=== PATIENT | female | born 1960 | race African-American/Black ===

== ENCOUNTER 2024-12-31 16:28 | Emergency (ER) | payer MEDICARE ==
[2024-12-31] MEDS ORDERED: Losartan 50 MG TAB ONE (16:59)
[2024-12-31 17:26] LABS: #Basophils 0.1 thou/uL (0.0-0.2); #Eosinophils 0.1 thou/uL (0.0-0.7); #Lymphocytes 1.4 thou/uL (1.20-3.40); #Monocytes 0.6 thou/uL (0.11-0.59); #Neutrophils 4.7 thou/uL (1.40-6.50); %Basophils 1.1 % (0.0-1.0); %Eosinophils 2.0 % (0.0-10.0); %Lymphocytes 20.0 % (21.0-51.0); %Monocytes 8.7 % (0.0-10.0); %Neutrophils 68.3 % (42.0-75.0); Hematocrit 37.5 % (36.0-47.0); Hemoglobin 13.2 g/dL (12.0-16.0); Mean Corpuscular Hemoglobin 30.4 pg (27.0-31.0); Mean Corpuscular Volume 86.4 fl (78.0-98.0); Platelet Count 360 10x3/uL (130-400); Red Blood Cell (RBC) Count 4.33 mill/uL (4.20-5.40); White Blood Cell (WBC) Count 6.9 10x3/uL (4.8-10.8)
[2024-12-31 17:39] LABS: ALT (SGPT) 22 U/L (Less than 34); AST (SGOT) 37 U/L (11-34); Albumin 3.7 g/dL (3.1-4.5); Alkaline Phosphatase 101 U/L (40-110); Anion Gap 16 mmol/L (10-20); BUN (Urea Nitrogen) 10 mg/dL (9.8-20.1); Bilirubin, Total 0.6 mg/dL (0.3-1.2); Calc. Creatinine Clearance 0 mL/min (70-130); Calcium 9.1 mg/dL (7.8-10.44); Carbon Dioxide 25 mmol/L (23-31); Chloride 105 mmol/L (98-107); Globulin 4.3 g/dL (2.4-3.5); Glucose 103 mg/dL (80-115); Potassium 3.3 mmol/L (3.5-5.1); Sodium 143 mmol/L (136-145)
== END 2024-12-31 18:29 | disposition home or self-care (01) ==
LOC: NAV ERS 16:28
DX: J32.9 Chronic sinusitis, unspecified (principal); B97.89 Other viral agents as the cause of diseases classified elsewhere; I10 Essential (primary) hypertension; R11.2 Nausea with vomiting, unspecified; H81.393 Other peripheral vertigo, bilateral; R29.700 NIHSS score 0; Z79.899 Other long term (current) drug therapy
CPT/HCPCS: 36415; 80053; 85025; 96372; 99284; J1010